=== PATIENT | male | born 1955 | race Caucasian/White ===

== ENCOUNTER 2016-08-25 12:40 | Emergency (ER) | payer MEDICAID ==
[~2016-08-25] VITALS: Ht 177.8 cm; Wt 81.6 kg
[2016-08-25 13:18] VITALS: BP 158/78
== END 2016-08-25 13:41 | disposition home or self-care (01) ==
LOC: ER 12:47
DX: F90.9 Attention-deficit hyperactivity disorder, unspecified type (principal); Z76.0 Encounter for issue of repeat prescription; Z88.6 Allergy status to analgesic agent